=== PATIENT | female | born 1990 | race Caucasian/White ===

== ENCOUNTER 2020-04-19 03:09 | Emergency (ER) | payer MEDICAID ==
[~2020-04-19] VITALS: Ht 175.3 cm; Wt 75.0 kg
[~2020-04-19 03:09] MED LIST: METH4TAB3 PO; METH500T PO
--- NOTE | 2020-04-19 03:20 | NUR ---
called poison control: advised to focus on ETOH effects until safe for transfer to .
[2020-04-19 03:36] LABS: URINE HCG NEGATIVE (NEG)
--- NOTE | 2020-04-19 03:38 | NUR ---
Patient states she has a history of self harm behaviors including "cutting".
[2020-04-19 03:46] LABS: CLARITY,URINE CLEAR (Clear); COLOR,URINE YELLOW (Yellow); GLUCOSE, URINE NEGATIVE (Neg); KETONES,URINE NEGATIVE (Neg); LEUKOCYTE ESTERASE ,URINE NEGATIVE (Neg); NITRITES, URINE NEGATIVE (Neg); OCCULT BLOOD,URINE NEGATIVE (Neg); PROTEIN,URINE NEGATIVE (Neg); UA COLLECTION TYPE CLN CATCH MIDSTREAM; UROBILINOGEN,URINE 0.2 E.U/dL (0.2-1.0)
[2020-04-19 03:48] LABS: BASOPHILS # (AUTO) 0.1 X10'3 (0-0.2); BASOPHILS % (AUTO) 0.8 % (0-1); EOSINOPHILS # (AUTO) 0.6 X10'3 (0-0.9); EOSINOPHILS % (AUTO) 6.8 % (0-6); HEMATOCRIT 43.5 % (35.0-45.0); HEMOGLOBIN 15.1 g/dl (12.0-16.0); LYMPHOCYTES # (AUTO) 3.4 X10'3 (1.1-4.8); MEAN CORPUSCULAR HEMOGLOBIN 32.4 PG (27.0-31.0); MEAN CORPUSCULAR HGB CONC 34.6 g/dL (33.0-36.5); MEAN CORPUSCULAR VOLUME 93.5 FL (78-98); MEAN PLATELET VOLUME 8.4 FL (7.4-10.4); MONOCYTES # (AUTO) 0.6 X10'3 (0-0.9); NEUTROPHILS # (AUTO) 3.9 X10'3 (1.8-7.7); NEUTROPHILS % (AUTO) 45.4 % (42-75); PLATELET COUNT 313 X10'3 (140-440); RED BLOOD COUNT 4.65 X10'6 (4.20-5.60); RED CELL DISTRIBUTION WIDTH 12.8 % (11.5-14.5); WHITE BLOOD COUNT 8.6 X10'3 (4.5-11.0)
--- NOTE | 2020-04-19 03:50 | NUR ---
Spoke to patient's mother Rae. she stated that her daughter has a severe drinking problem and needs help.
[2020-04-19 03:51] LABS: URINE AMPHETAMINE SCREEN NEGATIVE (Neg); URINE BARBITUATE SCREEN NEGATIVE (Neg); URINE BENZODIAZEPINES SCREEN NEGATIVE (Neg); URINE CANNABINOID SCREEN NEGATIVE (Neg); URINE COCAINE SCREEN NEGATIVE (Neg); URINE METHADONE SCREEN NEGATIVE (Neg); URINE OPIATE SCREEN NEGATIVE (Neg); URINE PHENCYCLIDINE SCREEN NEGATIVE (Neg)
[2020-04-19 04:00] LABS: ALANINE AMINOTRANSFERASE 20 U/L (12-78); ALBUMIN/GLOBULIN RATIO 1.6 (1.1-1.5); ALKALINE PHOSPHATASE 89 IU/L (46-116); ANION GAP 14 (8-16); ASPARTATE AMINO TRANSFERASE 18 U/L (10-37); BILIRUBIN,TOTAL 0.4 MG/DL (0.1-1.0); BLOOD UREA NITROGEN 12 MG/DL (7-18); BUN/CREATININE RATIO 16.2 (6.6-38.0); CALCIUM 8.6 MG/DL (8.5-10.1); CHLORIDE 108 MMOL/L (99-107); CREATININE 0.74 MG/DL (0.40-0.90); GLUCOSE 91 MG/DL (70-104); POTASSIUM 3.5 MMOL/L (3.5-5.1); SODIUM 147 MMOL/L (135-145); TOTAL CARBON DIOXIDE 25.4 MMOL/L (24-32); TOTAL PROTEIN 8.1 G/DL (6.4-8.2); eGFR > 90 ML/MIN
[2020-04-19 04:09] LABS: ETHANOL 0.294 GM/DL (0.0-0.010)
[2020-04-19 05:25] LABS: ACETAMINOPHEN < 2.0 UG/ML (10-30)
--- NOTE | 2020-04-19 06:50 | NUR ---
REPORT RECEIVED, CARE ASSUMED OF PT SLEEPING IN RM16 IN NO NOTED DISTRESS, SITTER AT BEDSIDE. AWAITING FOR [facility] EVALUATION
--- NOTE | 2020-04-19 07:45 | NUR ---
PT'S SIGNIFICANT OTHER CALLED FOR STATUS UPDATE. INFORMED THAT PT WAS SLEEPING AND UNABLE TO GIVE PERMISSION FOR INFORMATION REGARDING HER STATUS TO BE GIVEN AT THIS TIME; HOWEVER, HE WAS INFORMED THAT PT WAS SLEEPING WITHOUT DIFFICULTY AND AWAITING [facility] TO EVALUATE THE PT.
--- NOTE | 2020-04-19 08:00 | NUR ---
PT REMAINS ASLEEP, SAFETY BREAKFAST DELIVERED TO PT'S BEDSIDE
--- NOTE | 2020-04-19 08:52 | NUR ---
POISON CONTROL CALLED FOR STATUS UPDATE. REQUESTED A REPEAT CMP AND VS Addendum: 04/19/20 at 0854 by KAIT REPEAT CMP ORDERED
--- NOTE | 2020-04-19 09:30 | NUR ---
WAITING ON MENTAL HEALTH. PT ASKED FOR A PHONE TO CALL HER BOYFRIEND. WHEN SHE ASKED IF SHE WILL BE HERE ALL DAY SHE STARTED TO CRY.
[2020-04-19 10:02] LABS: ALANINE AMINOTRANSFERASE 16 U/L (12-78); ALBUMIN 4.5 G/DL (3.4-5.0); ALBUMIN/GLOBULIN RATIO 1.7 (1.1-1.5); ALKALINE PHOSPHATASE 63 IU/L (46-116); ANION GAP 9 (8-16); ASPARTATE AMINO TRANSFERASE 19 U/L (10-37); BILIRUBIN,TOTAL 0.5 MG/DL (0.1-1.0); BLOOD UREA NITROGEN 11 MG/DL (7-18); BUN/CREATININE RATIO 17.5 (6.6-38.0); CALCIUM 8.3 MG/DL (8.5-10.1); CHLORIDE 108 MMOL/L (99-107); CREATININE 0.63 MG/DL (0.40-0.90); GLUCOSE 84 MG/DL (70-104); SODIUM 142 MMOL/L (135-145); TOTAL CARBON DIOXIDE 24.7 MMOL/L (24-32); TOTAL PROTEIN 7.2 G/DL (6.4-8.2); eGFR > 90 ML/MIN
--- NOTE | 2020-04-19 10:27 | NUR ---
Spoke with MARILIN Lares and he states he plans to discharge pt home with safety plan with pt's family members. mother and fiance. also will give her an alcohol abuse resource for further assistance.
[2020-04-19 10:59] VITALS: BP 124/77
== END 2020-04-19 11:00 | disposition home or self-care (01) ==
LOC: ER 03:09
DX: F10.129 Alcohol abuse with intoxication, unspecified (principal); R45.851 Suicidal ideations; J45.909 Unspecified asthma, uncomplicated; Z98.51 Tubal ligation status; Z88.8 Allergy status to other drugs, medicaments and biological substances; Z79.899 Other long term (current) drug therapy; Y90.0 Blood alcohol level of less than 20 mg/100 ml
CPT/HCPCS: 36415; 80053; 80305; 80320; 80329; 81003; 81025; 84443; 85025; 99285

== ENCOUNTER 2022-07-27 02:08 | Emergency (ER) | payer MEDICAID ==
[~2022-07-27] VITALS: Ht 172.7 cm; Wt 80.0 kg
[2022-07-27 02:36] VITALS: BP 133/99
== END 2022-07-27 04:20 | disposition home or self-care (01) ==
LOC: ER 02:09
DX: S90.851A Superficial foreign body, right foot, initial encounter (principal); J45.909 Unspecified asthma, uncomplicated; Z88.8 Allergy status to other drugs, medicaments and biological substances; X58.XXXA Exposure to other specified factors, initial encounter; Y93.89 Activity, other specified; Y92.89 Other specified places as the place of occurrence of the external cause; Y99.8 Other external cause status
CPT/HCPCS: 73630; 99283

== ENCOUNTER 2022-12-14 12:40 | Emergency (ER) | payer MEDICAID ==
[~2022-12-14] VITALS: Ht 172.7 cm; Wt 72.7 kg
[2022-12-14 13:06] LABS: CLARITY,URINE CLEAR (Clear); COLOR,URINE YELLOW (Yellow); GLUCOSE, URINE NEGATIVE (Neg); KETONES,URINE NEGATIVE (Neg); LEUKOCYTE ESTERASE ,URINE NEGATIVE (Neg); NITRITES, URINE NEGATIVE (Neg); OCCULT BLOOD,URINE NEGATIVE (Neg); PH,URINE 5.5 (4.8-8.0); PROTEIN,URINE NEGATIVE (Neg); UROBILINOGEN,URINE 0.2 E.U/dL (0.2-1.0)
[2022-12-14 13:09] LABS: BASOPHILS % (AUTO) 0.3 % (0-1); EOSINOPHILS # (AUTO) 0.3 X10'3 (0-0.9); EOSINOPHILS % (AUTO) 2.3 % (0-6); HEMATOCRIT 47.7 % (35.0-45.0); HEMOGLOBIN 16.4 g/dl (12.0-16.0); LYMPHOCYTES # (AUTO) 1.6 X10'3 (1.1-4.8); LYMPHOCYTES % (AUTO) 11.7 % (21-51); MEAN CORPUSCULAR HEMOGLOBIN 33.3 PG (27.0-31.0); MEAN CORPUSCULAR HGB CONC 34.3 g/dL (33.0-36.5); MEAN CORPUSCULAR VOLUME 96.9 FL (78-98); MEAN PLATELET VOLUME 8.3 FL (7.4-10.4); MONOCYTES # (AUTO) 1.1 X10'3 (0-0.9); MONOCYTES % (AUTO) 7.7 % (2-12); NEUTROPHILS # (AUTO) 10.8 X10'3 (1.8-7.7); PLATELET COUNT 247 X10'3 (140-440); RED BLOOD COUNT 4.93 X10'6 (4.20-5.60); RED CELL DISTRIBUTION WIDTH 13.4 % (11.5-14.5); WHITE BLOOD COUNT 13.9 X10'3 (4.5-11.0)
[2022-12-14 13:10] LABS: URINE HCG NEGATIVE (NEG)
[2022-12-14 13:22] LABS: ALANINE AMINOTRANSFERASE 51 U/L (12-78); ALBUMIN 5.2 G/DL (3.4-5.0); ALBUMIN/GLOBULIN RATIO 1.4 (1.1-1.5); ALKALINE PHOSPHATASE 112 IU/L (46-116); ANION GAP 16 (8-16); ASPARTATE AMINO TRANSFERASE 36 U/L (10-37); BILIRUBIN,TOTAL 1.6 MG/DL (0.1-1.0); BLOOD UREA NITROGEN 8 MG/DL (7-18); BUN/CREATININE RATIO 8.9 (10.0-20.0); CALCIUM 9.9 MG/DL (8.5-10.1); CHLORIDE 95 MMOL/L (99-107); GLUCOSE 107 MG/DL (70-104); POTASSIUM 3.3 MMOL/L (3.5-5.1); SODIUM 137 MMOL/L (135-145); TOTAL CARBON DIOXIDE 26.1 MMOL/L (24-32); TOTAL PROTEIN 8.8 G/DL (6.4-8.2); eGFR 72 ML/MIN
[2022-12-14 13:24] LABS: LIPASE 101 U/L (73-393)
[2022-12-14 13:28] LABS: UA COLLECTION TYPE CLN CATCH MIDSTREAM
[2022-12-14] MEDS ORDERED: normal saline 1000ml 1,000 ML IV ONE (15:05)
[2022-12-14] MEDS ORDERED: ondansetron 4mg rapidly disintigrating tab PO ONE (16:20)
[2022-12-14] MEDS ORDERED: ONDA4TAB12 PO (16:34)
[2022-12-14] MEDS ORDERED: potassium Cl 20 mEq SR tablet PO ONE (16:35)
[2022-12-14 16:41] VITALS: BP 138/83
== END 2022-12-14 16:42 | disposition home or self-care (01) ==
LOC: ER 12:40
DX: E86.0 Dehydration (principal); J45.909 Unspecified asthma, uncomplicated; R11.2 Nausea with vomiting, unspecified; Z88.8 Allergy status to other drugs, medicaments and biological substances; Z98.51 Tubal ligation status
CPT/HCPCS: 36415; 76700; 76856; 80053; 81003; 81025; 83690; 85025; 93976; 99284; J7030

== ENCOUNTER 2024-08-26 09:24 | Emergency (ER) | payer MEDICAID ==
[~2024-08-26] VITALS: Ht 175.3 cm; Wt 79.0 kg
[~2024-08-26 09:24] MED LIST changes: +ONDA-243 PO
[2024-08-26 09:27] VITALS: TEMP 98.6
[2024-08-26] MEDS: ondansetron 4mg rapidly disintigrating tab PO ONE (10:11)
[2024-08-26] MEDS: meclizine 12.5mg tablet PO ONE (10:11)
[2024-08-26] MEDS: LORazepam 1 MG tablet PO ONE (10:12)
[2024-08-26] MEDS ORDERED: ONDA-243 PO (11:16)
[2024-08-26] MEDS ORDERED: LORA-269 PO (11:16)
[2024-08-26] MEDS ORDERED: MECL-302 PO (11:16)
[2024-08-26] MEDS ORDERED: dexamethasone sod phosphate 10mg/ml inj PO STA (11:18)
[2024-08-26] MEDS: dexamethasone sod phosphate 10mg/ml inj PO STA (11:58)
[2024-08-26 12:02] VITALS: BP 175/102; PULSE 97; RESP 17; O2SAT 97
== END 2024-08-26 12:03 | disposition home or self-care (01) ==
LOC: ER 09:25
DX: R42 Dizziness and giddiness (principal); J45.909 Unspecified asthma, uncomplicated; Z98.51 Tubal ligation status; Z88.8 Allergy status to other drugs, medicaments and biological substances
CPT/HCPCS: 99284; J1100; J8597

== ENCOUNTER 2024-12-21 | Emergency (ER) | payer MEDICAID ==
[~2024-12-21] VITALS: Ht 175.3 cm; Wt 78.0 kg
[~2024-12-21] MED LIST changes: +LORA-269 PO; +MECL-302 PO
[2024-12-21 00:18] VITALS: TEMP 98.8
--- NOTE | 2024-12-21 01:00 | Physician Documentation ---
History of Present Illness ~ Chief Complaint: Difficulty Breathing Stated Complaint: POSSIBLE PNEMONIA Time Seen by MD: 00:42 Primary Medical Doctor: [facility] Source: patient Mode of Arrival: POV Exam Limitations: no limitations HPI Chief Complaint: Chest pain Caveat: None Independent Historians: None History of Present Illness: Patient is a 34-year-old woman who comes in complaining of left-sided chest pain under her left breast that occurs when she takes a deep breath. This pain began three days ago. Patient has had a cough with occasional green sputum. No fever. No chills. Patient denies any abdominal pain. No nausea vomiting diarrhea. Review of systems: All systems were reviewed and are negative except for what is indicated in the history of present illness. Past Medical History: None Past Surgical History: None Social History: Tobacco use, denies alcohol use, denies drug use Medications: Reviewed as documented Nursing Notes Allergies: Reviewed as documented in Nursing Notes Medication Reconciliation Allergies: Coded Allergies: promethazine (Verified Allergy, Unknown, 12/21/24) Scheduled Methocarbamol (Robaxin), 1 TAB PO Q8H Methylprednisolone (Medrol), 1 DOSPAK PO UD ONDANSETRON ODT 4mg tablet (Ondansetron Odt), 1 TABLET PO Q6H Scheduled PRN Lorazepam (Ativan), 1 TAB PO Q8H PRN for for anxiety/agitation Meclizine HCl (Meclizine HCl), 1 TABLET PO TID PRN PRN for dizziness/vertigo ONDANSETRON ODT 4mg tablet (Ondansetron Odt), 1 TABLET PO Q6H PRN for nausea/vomiting Past Medical History Past Medical History: No Pertinent History, Asthma Past Surgical History: tubal ligation Alcohol Use: None Drug Use: none Lives In: Home Occupation: employed Review of Systems All Other Systems at this time: Reviewed and Negative ROS Patient denies any other acute symptoms other than above. All other systems are negative Physical Exam Vital Signs: RN Vital Signs have been reviewed: Yes, Temperature: 98.8, Source: Temporal, Heart Rate: 97, Respiratory Rate: 16, BP: 140/80, Pulse Oximetry: 98, Weight: 78.000 Oxygen Flow Rate: 0 Pulse Oximetry Reflects: adequate oxygenation Physical Exam General Appearance: Mild distress HEENT: Normal OP, moist oral mucosa, PERRL, EOMI Neck: supple, normal ROM, trachea midline Pulmonary: No respiratory distress, CTA, BS equal, no pleural rub appreciated Cardiac: RRR, no murmur, rub or gallop, GI: nondistended, soft, nontender, normal bowel sounds, no guarding, no rebound Extremities: normal ROM, no swelling, non-tender Skin: intact, dry, warm, no rashes Neuro: AAOx3, speech is clear, no focal motor weakness Psych: normal affect, good eye contact, no apparent hallucination, normal speech Progress Results/Orders Results/Orders Orders - MOSES SMITH MD Chest,Two Views (12/21/24 00:) Culture Blood (12/21/24:) Saline Lock (12/21/24:) Oxygen (12/21/24:) Lactic,2hr (12/21/24 02:45) Completed Orders - MOSES SMITH MD Chest,Two Views (12/21/24:) Cbc/Diff (12/21/24:) BMP (12/21/24 00:) PBNP (12/21/24:) Lacticsepsis (12/21/24 00:) Electrocardiogram (12/21/24 00:58) D-Dimer (12/21/24 00:58) Vital Signs 12/21/24 12/21/24 12/21/24 12/21/24 00:18 00:36 01:11 01:23 Temp 98.8 Pulse 107 97 102 Resp 18 16 16 16 B/P (MAP) 123/86 140/80 (100) 124/84 (97) Pulse Ox 98 98 98 O2 Flow Rate 0 Laboratory Tests Test 12/21/24 01:11 White Blood Count 6.9 Red Blood Count 4.03 L Hemoglobin 13.9 Hematocrit 39.6 Mean Corpuscular Volume 98.2 H Mean Corpuscular Hemoglobin 34.5 H Mean Corpuscular Hemoglobin Concent 35.2 Red Cell Distribution Width 14.0 Platelet Count 195 Mean Platelet Volume 7.9 Neutrophils (%) (Auto) 60.6 Lymphocytes (%) (Auto) 28.5 Monocytes (%) (Auto) 6.5 Eosinophils (%) (Auto) 3.3 Basophils (%) (Auto) 1.1 H Neutrophils # (Auto) 4.2 Lymphocytes # (Auto) 2.0 Monocytes # (Auto) 0.4 Eosinophils # (Auto) 0.2 Basophils # (Auto) 0.1 CBC Comment D-Dimer 0.46 D-Dimer Comment Sodium Level 139 Potassium Level 3.3 L Chloride Level 106 Carbon Dioxide Level 24.7 Anion Gap 8 Blood Urea Nitrogen 8 Creatinine 0.52 Estimated GFR/1.73 m2 > 90 BUN/Creatinine Ratio 15.4 Glucose Level 123 H Lactic Acid Level 2.5 H Calcium Level 8.5 Pro-B-Type Natriuretic Peptide 136 H Albumin 3.7 Chemistry Comments Microbiology Date/Time Source Procedure Growth Status 12/21/24 01:11 Blood Blood Culture - Preliminary NEGATIVE (LESS THAN 24 HOURS) Resulted Medical Decision Making Findings Differential diagnosis includes but is not limited to: Pneumonia, pulmonary embolus, acute bronchitis, pleurisy EKG independent interpretation: Chest x-ray, single view, indication: Chest pain Independent interpretation: Lungs are clear, normal mediastinum, normal cardiac silhouette, no acute cardiopulmonary process Laboratory data independent interpretation: CBC: Unremarkable CMP: Unremarkable D-dimer: 0.46 Emergency department course/medical decision-making: Patient presents with pleuritic left chest pain. PE has been ruled out with a negative D-dimer. No evidence of pneumothorax or pneumonia on the chest x-ray. Patient is instructed to stop smoking. Patient eloped prior to discharge. Patient was called and reviewed lab findings and chest x-ray findings and diagnosis and treatment. Departure Disposition: HOME / SELF CARE / HOMELESS Impression: Primary Impression: Pleurisy Condition: Stable Discharge Instructions: Pleurisy, [id number] Education Educated: Patient Educated regarding: diagnosis, treatment, need for follow up Signature Scribe Signature: No scribe Attestation: No scribe MOSES SMITH MD Dec 21, 2024 01:00
--- NOTE | 2024-12-21 01:00 | ELECTROCARDIOGRAPH REPORT ---
[facility] Test Date: 2024-12-21 Test Time: 00:43:58 Pat Name: DEWEY ZHAO Department: EMERGENCY ROOM Patient ID: [id number] Room: Gender: F Gatekeeper: MICHELLE : 1990 Requested By: MOSES SMITH Order Number: [id number] Reading MD: Dr. Bala Garcia Measurements Intervals [place] Rate: 103 P: 55 MA: 143 QRS: 59 QRSD: 95 T: 47 QT: 367 QTc: 481 Interpretive Statements Sinus tachycardia Borderline prolonged QT interval Electronically Signed On 12-24-2024 19:16:[address] Bala Garcia Please click the below link to view image of tracing.
--- NOTE | 2024-12-21 01:08 | RADIOLOGY REPORT ---
CHEST RADIOGRAPH Indication: chest pain Technique: Frontal and lateral view of the chest was obtained Comparison: None FINDINGS: Lines and Tubes: None Lungs: Clear Pleura: No effusion. No pneumothorax. Cardiomediastinal contours: Unremarkable Bones: Unremarkable IMPRESSION: 1. No evidence of acute disease.
[2024-12-21 01:23] VITALS: BP 124/84; PULSE 102; RESP 16; O2SAT 98
[2024-12-21 01:24] LABS: MEAN PLATELET VOLUME 7.9 FL (7.4-10.4); RED CELL DISTRIBUTION WIDTH 14.0 % (11.5-14.5)
[2024-12-21 01:48] LABS: CREATININE 0.52 MG/DL (0.40-0.90); PRO BRAIN NATRIURETIC PEPTIDE 136 PG/ML (0-125); TOTAL CARBON DIOXIDE 24.7 MMOL/L (24-32); eCRCL 156 ML/MIN; eGFR > 90 ML/MIN
== END 2024-12-21 02:04 | disposition left against medical advice (07) ==
LOC: ER 00:01
DX: R09.1 Pleurisy (principal); R06.02 Shortness of breath; J45.909 Unspecified asthma, uncomplicated; Z98.51 Tubal ligation status
CPT/HCPCS: 36415; 71046; 80048; 83605; 83880; 85025; 85379; 87040; 93005; 99285